=== PATIENT | female | born 1955 | race Caucasian/White ===

== ENCOUNTER 2021-07-15 07:57 | Day surgery (SDC) | payer MEDICARE ==
[~2021-07-15 07:57] MED LIST: Midazolam 1 MG/ML 2 ML SDV ONE; Propofol 200 MG/20 ML SDV ONE; fentaNYL 100 MCG/2 ML SDV ONE
[2021-07-15] MEDS ORDERED: Sodium Chloride 0.9% 1,000 ML IV SCH (09:00)
[2021-07-15 12:11] VITALS: BP 113/77; PULSE 58
--- NOTE | 2021-07-18 08:58 | OR ---
DATE OF PROCEDURE: 07/15/2021 SURGEON: Raj Dawkins MD PROCEDURE: Colonoscopy. FINDINGS: 1. Sigmoid colon polyp, approximately 5 mm, completely removed using cold biopsy forceps. 2. Mild inflammation in the rectum (biopsied using cold biopsy forceps). 3. Internal hemorrhoid, endoscopically banded. COMPLICATIONS: None. CASH ACCOUNTING CLERK: None. ANESTHESIA: MAC. PREOPERATIVE DIAGNOSIS: Screening colonoscopy/rectal bleeding. POSTOPERATIVE DIAGNOSIS: Screening colonoscopy/rectal bleeding. RISKS: Risks, benefits, alternatives, and limitations including, but not limited to infection, bleeding, perforation, false- positives and false-negatives were explained to the patient who wished to proceed. PROCEDURE IN DETAIL: The patient was placed in left lateral decubitus position. Digital rectal exam was performed without abnormality. Scope was introduced and advanced atraumatically to the ileocecal valve. A photo was taken of the appendiceal orifice. Scope was brought back to the ascending, transverse, descending colon, and retroflexed. Within the sigmoid colon, there was a small aforementioned polyp which was identified and completely removed. No abnormal bleeding was noted after removal. The patient has a very mild inflammation in the rectum. This was biopsied using cold biopsy forceps. In addition, the patient had a prominent internal hemorrhoid which was endoscopically banded using the standard banding Super 7 system. No other abnormalities noted. Greater than 8 minutes was spent removing the scope. The prep was acceptable. Approximately 90% luminal surface could be seen. The patient tolerated the procedure well. Raj Dawkins MD /[id number]
== END 2021-07-15 11:55 | disposition home or self-care (01) ==
LOC: JP.SDS 07:57
PROVIDERS: ATTEND Surgery
DX: D12.5 Benign neoplasm of sigmoid colon (principal); K64.8 Other hemorrhoids; I10 Essential (primary) hypertension; E78.5 Hyperlipidemia, unspecified; Z88.8 Allergy status to other drugs, medicaments and biological substances
CPT/HCPCS: 45380; J2250; J2704; J3010; J7030; 88305

== ENCOUNTER 2024-07-01 08:19 | Day surgery (SDC) | payer MEDICARE ==
[2024-07-01] MEDS ORDERED: fentaNYL 50 MCG/ML SDV ONE (08:41)
[2024-07-01] MEDS ORDERED: Propofol 200 MG/20 ML SDV ONE ×2 (08:41→11:20)
[2024-07-01] MEDS: Sodium Chloride 0.9% 1,000 ML IV SCH (09:12)
[2024-07-01 12:46] VITALS: BP 123/62; PULSE 62
== END 2024-07-01 12:52 | disposition home or self-care (01) ==
LOC: JP.SDS 08:19
PROVIDERS: ATTEND Surgery
DX: Z12.11 Encounter for screening for malignant neoplasm of colon (principal); I10 Essential (primary) hypertension
CPT/HCPCS: G0121; J2704; J3010; J7030